=== PATIENT | male | born 1960 | race Caucasian/White ===

== ENCOUNTER 2017-09-16 07:27 | Day surgery (SDC) | payer OTHER ==
[~2017-09-16] VITALS: Ht 165.1 cm; Wt 117.9 kg
[~2017-09-16 07:27] MED LIST: ALBU1AER4 IN; ALL100T PO; ASPI81TA13 PO; ATO40T PO; CARV12.544 PO; CARV6.2551 PO; CHOL20007 OR; CYAN100023 PO; FURO40TA4 PO; HEPARIN IN NS 1000Units/500mL 1,500 ML ONE; HYDR50TA15 PO; INSDRIP SC; IODIXANOL 320MG/ML 100ML BTL IV ONE; LEV50T PO; LIDOCAINE 2%HCL (LOCAL ANESTH.) INJ 20ML MDV ONE; WARF2TAB49 PO; WARF5TAB PO; WARF5TAB71 PO
[2017-09-16] MEDS ORDERED: SODIUM CHL 0.9% 0 ML ONE (08:39)
[2017-09-16] MEDS ORDERED: ANGIOMAX 250 MG VIAL IV ONE (08:39)
[2017-09-16] MEDS ORDERED: MIDAZOLAM HCL 1MG/1ML-2 ML VIAL ONE ×2 (08:39→09:07)
[2017-09-16] MEDS ORDERED: fentaNYL CITRATE 100 MCG/2 ML VL ONE (08:39)
[2017-09-16] MEDS ORDERED: VERAPAMIL 2.5MG/ML INJ 2ML VIAL IV ONE (08:47)
[2017-09-16] MEDS ORDERED: LIDOCAINE 2%HCL (LOCAL ANESTH.) INJ 20ML MDV ONE (09:06)
[2017-09-16] MEDS ORDERED: IODIXANOL 320MG/ML 100ML BTL IV ONE (09:19)
== END 2017-09-16 11:50 | disposition home or self-care (01) ==
LOC: CATH 07:27
PROVIDERS: ATTEND Internal Medicine
DX: I25.82 Chronic total occlusion of coronary artery (principal); I99.8 Other disorder of circulatory system; Z88.0 Allergy status to penicillin; Z91.041 Radiographic dye allergy status; I50.9 Heart failure, unspecified; J44.9 Chronic obstructive pulmonary disease, unspecified; G47.30 Sleep apnea, unspecified; F41.9 Anxiety disorder, unspecified; F32.9 Major depressive disorder, single episode, unspecified; I82.409 Acute embolism and thrombosis of unspecified deep veins of unspecified lower extremity
CPT/HCPCS: 93005; 93458; C1760; C1769; C1894; J1644; J2250; J3010; J7030; Q9967; 99152

== ENCOUNTER 2018-11-17 16:01 | Emergency (ER) | payer OTHER, MEDICAID ==
[~2018-11-17] VITALS: Ht 177.8 cm; Wt 127.0 kg
[~2018-11-17 16:01] MED LIST changes: +ASPI1TAB19 PO; -ASPI81TA13 PO; +ENAL2.5T PO; -FURO40TA4 PO; +FURO80TA3 PO; -HEPARIN IN NS 1000Units/500mL 1,500 ML ONE; +HYDR100T22 PO; -HYDR50TA15 PO; -IODIXANOL 320MG/ML 100ML BTL IV ONE; -LIDOCAINE 2%HCL (LOCAL ANESTH.) INJ 20ML MDV ONE; +OMEP20TA PO
[2018-11-17] MEDS ORDERED: CALCIUM CHLOR(10%) 100MG/ML 10ML SYRINGE IV ONE (16:02)
[2018-11-17] MEDS ORDERED: EPINEPHrine HCL 1 MG/10 ML SYRG IV ONE (16:02)
[2018-11-17] MEDS ORDERED: SODIUM BICARBONATE 8.4% INJ 50ML SYRINGE IV ONE (16:02)
[2018-11-17 16:05] VITALS: BP 0/0
== END 2018-11-18 06:38 | disposition expired ==
LOC: EDBD 16:01 → ER 16:01
DX: I46.9 Cardiac arrest, cause unspecified (principal); E11.22 Type 2 diabetes mellitus with diabetic chronic kidney disease; I13.2 Hypertensive heart and chronic kidney disease with heart failure and with stage 5 chronic kidney disease, or end stage renal disease; I50.9 Heart failure, unspecified; N18.6 End stage renal disease; J44.9 Chronic obstructive pulmonary disease, unspecified; I25.2 Old myocardial infarction; Z88.0 Allergy status to penicillin; Z91.041 Radiographic dye allergy status; Z99.2 Dependence on renal dialysis; Z79.4 Long term (current) use of insulin; Z79.82 Long term (current) use of aspirin; Z79.899 Other long term (current) drug therapy
CPT/HCPCS: 92950; 99291; J0171